=== PATIENT | male | born 1995 | race African-American/Black ===

== ENCOUNTER 2017-02-16 14:03 | Emergency (ER) | payer SELFPAY ==
[2017-02-16 14:41] LABS: BASO % 0.2 % (0.0-1.0); HEMATOCRIT 41.3 % (42.0-52.0); HEMOGLOBIN 14.1 g/dl (14.0-18.0); LYMPH # 0.8 10*3/uL (1.3-4.4); LYMPH % 9.7 % (27.0-41.0); MEAN CELL VOLUME 89.2 fl (80.0-94.0); MEAN CORPUSCULAR HGB 30.5 pg (27.0-31.0); MEAN CORPUSCULAR HGB CONC 34.1 g/dl (33.0-37.0); MEAN PLATELET VOLUME 9.2 fl (9.6-12.3); MONO # 0.8 10*3/uL (0.1-1.0); MONO % 9.9 % (3.0-9.0); NEUT # 6.7 10*3/uL (2.3-7.9); PLATELET COUNT AUTOMATED 189 10*3/uL (130-400); RED BLOOD COUNT 4.63 10*6/uL (4.50-5.90); RED CELL DISTRI WIDTH 12.1 % (0-14.5); WHITE BLOOD COUNT 8.4 10*3/uL (4.8-10.8)
[2017-02-16 14:57] LABS: ALBUMIN 3.7 gm/dl (3.1-4.5); ALKALINE PHOSPHATASE 76 U/L (45-117); BILIRUBIN, TOTAL 0.7 mg/dl (0.2-1.0); BUN 6 mg/dl (7-24); CARBON DIOXIDE 27 mmol/L (21-32); CHLORIDE 99 mmol/L (98-107); EST GLOM FILT AFRICAN AMERICAN > 60 ml/min; GLUCOSE 121 mg/dL (65-99); POTASSIUM 3.3 mmol/L (3.5-5.1); SGOT/AST 21 IU/L (3-35); SGPT/ALT 17 U/L (12-78); SODIUM 134 mmol/L (136-145); TOTAL PROTEIN 8.2 gm/dL (6.4-8.2)
[2017-02-16] MEDS ORDERED: OMNICEF300 MG PO (15:09)
== END 2017-02-16 15:14 | disposition home or self-care (01) ==
LOC: ED 14:03
PROVIDERS: Nurse Practitioner Family
DX: J02.9 Acute pharyngitis, unspecified (principal)

== ENCOUNTER 2020-08-06 13:02 | Emergency (ER) | payer OTHER ==
[~2020-08-06] VITALS: Ht 187.9 cm; Wt 72.6 kg
[~2020-08-06 13:02] MED LIST: OMNICEF300 MG PO
[2020-08-06] MEDS ORDERED: CYCLOBENZAPRINE10 MG PO (16:20)
[2020-08-06] MEDS ORDERED: MEDROL DOSEPAK4 MG PO (16:20)
== END 2020-08-06 16:30 | disposition home or self-care (01) ==
LOC: ED 13:02
DX: S16.1XXA Strain of muscle, fascia and tendon at neck level, initial encounter (principal); W00.0XXA Fall on same level due to ice and snow, initial encounter; Y93.89 Activity, other specified; Y92.89 Other specified places as the place of occurrence of the external cause; Y99.8 Other external cause status

== ENCOUNTER 2022-12-29 17:24 | Emergency (ER) | payer OTHER ==
[~2022-12-29] VITALS: Ht 187.9 cm; Wt 68.0 kg
[~2022-12-29 17:24] MED LIST changes: +CYCLOBENZAPRINE10 MG PO; +MEDROL DOSEPAK4 MG PO
[2022-12-29] MEDS ORDERED: CYCLOBENZAPRINE10 MG PO (18:13)
[2022-12-29] MEDS ORDERED: Motrin,Rufen800 MG PO (18:13)
== END 2022-12-29 18:53 | disposition home or self-care (01) ==
LOC: ED 17:24
DX: S39.012A Strain of muscle, fascia and tendon of lower back, initial encounter (principal); S46.912A Strain of unspecified muscle, fascia and tendon at shoulder and upper arm level, left arm, initial encounter; Z79.2 Long term (current) use of antibiotics; Z79.899 Other long term (current) drug therapy; V47.5XXA Car driver injured in collision with fixed or stationary object in traffic accident, initial encounter; Y93.I9 Activity, other involving external motion; Y92.488 Other paved roadways as the place of occurrence of the external cause; Y99.8 Other external cause status

== ENCOUNTER 2023-09-10 18:54 | Emergency (ER) | payer OTHER ==
[~2023-09-10] VITALS: Wt 68.0 kg
[~2023-09-10 18:54] MED LIST changes: +Motrin,Rufen800 MG PO
[2023-09-10] MEDS ORDERED: Rabies Immune Globulin 150O UNIT/10 ML IM ONE (19:40)
[2023-09-10] MEDS ORDERED: Rabies Vaccine 1 ML VIAL IM ONE (19:40)
[2023-09-10] MEDS ORDERED: AMOX-CLAV 875-1 EACH PO (19:58)
[2023-09-10] MEDS ORDERED: Amoxicillin/Clavulanate Pota 875 MG TAB PO ONE (20:00)
== END 2023-09-10 21:23 | disposition home or self-care (01) ==
LOC: ED 18:54
DX: S01.81XA Laceration without foreign body of other part of head, initial encounter (principal); W54.0XXA Bitten by dog, initial encounter; Y93.89 Activity, other specified; Y92.89 Other specified places as the place of occurrence of the external cause; Y99.8 Other external cause status

== ENCOUNTER 2023-09-16 14:17 | Emergency (ER) | payer OTHER ==
[~2023-09-16] VITALS: Ht 187.9 cm; Wt 68.0 kg
[~2023-09-16 14:17] MED LIST changes: +AMOX-CLAV 875-1 EACH PO
[2023-09-16] MEDS ORDERED: Rabies Vaccine 1 ML VIAL IM ONE (14:45)
== END 2023-09-16 15:15 | disposition home or self-care (01) ==
LOC: ED 14:17
DX: S01.81XD Laceration without foreign body of other part of head, subsequent encounter (principal); X58.XXXD Exposure to other specified factors, subsequent encounter

== ENCOUNTER 2024-02-25 17:35 | Emergency (ER) | payer OTHER ==
[~2024-02-25] VITALS: Ht 187.9 cm; Wt 74.8 kg
== END 2024-02-25 18:56 | disposition home or self-care (01) ==
LOC: ED 17:35
DX: J06.9 Acute upper respiratory infection, unspecified (principal); Z20.822 Contact with and (suspected) exposure to COVID-19